=== PATIENT | female | born 1955 | race Caucasian/White ===

== ENCOUNTER 2022-02-19 10:22 | Outpatient (CLI) | payer OTHER | END 2022-02-19 10:34 | disposition home or self-care (01) | LOC: TOM 10:22 | DX: R19.5 Other fecal abnormalities (principal); J45.909 Unspecified asthma, uncomplicated ==

== ENCOUNTER → 2023-01-23 | Outpatient (CLI) | payer OTHER | END | disposition home or self-care (01) | LOC: NUCLEAR 07:00 | PROVIDERS: ATTEND Internal Medicine Cardiovascular Disease | DX: R07.89 Other chest pain (principal) | CPT/HCPCS: 78452; 93017; A9500; J1250 ==